=== PATIENT | female | born 1995 | race Two or more races ===

== ENCOUNTER 2017-01-27 09:51 | Emergency (ER) | payer OTHER ==
[2017-01-27 10:01] VITALS: PULSE 72; TEMP 98.4
[2017-01-27 10:18] LABS: COLOR YELLOW; LEUKOCYTE ESTERASE,URINE NEGATIVE (NEGATIVE); NITRITE,URINE NEGATIVE (NEGATIVE)
--- NOTE | 2017-01-27 11:01 | EDPHY ---
HPI/HX/ROS/PE/MDM Narrative: CHIEF COMPLAINT: Pelvic pain HPI: This patient is a 21 year old female complaining of lower abdominal pain onset this morning, now resolved. She had sharp, cramping pain in the area of her uterus for about two hours. This resolved here in the emergency department. She denies vaginal discharge, burning, or lesions. No hematuria or dysuria. Her last menstrual period was 20 days ago. She is now completely asymptomatic. No recent illness or trauma. She has no further concerns. REVIEW OF SYSTEMS: Aside from elements discussed in the HPI, a comprehensive 10-point review of systems was reviewed and is negative. PMH: Denies. SOCIAL HISTORY: Lives in [place]. Student at [employer]. Friend at bedside. PHYSICAL EXAM: General:Patient is alert, in no acute distress. ENT:Eyes are normal to inspection. ENT inspection normal. Neck: Normal inspection. Full range of motion. Respiratory:No respiratory distress. Breath sounds normal bilaterally. Cardiovascular: Regular rate and rhythm. Strong peripheral pulses. Normal cap refill. Abdomen:The abdomen is nontender to palpation. There are no peritoneal signs. There are normal bowel sounds. Back: Normal to inspection. No tenderness to palpation. Skin: Normal color. No rash. Warm and dry. Extremities: Left wrist in splint. Otherwise normal appearance. Full range of motion. Neuro: Oriented x3. Normal motor function. Normal sensory function. ED Course: 21 y/o female presents following two hour history of pelvic pain, now resolved. Benign abdomen on exam. Plan for labs including CBC, chemistries, BHCG. Plan for pelvic ultrasound to evaluate for acute processes. Pelvic ultrasound negative for acute processes. Laboratory studies unremarkable. BHCG negative, UA negative for UTI. 12:31 The patient continues to feel asymptomatic. She is comfortable with discharge home. Follow up and return precautions discussed. She is comfortable with this plan. - Data Points Imaging Results: Imaging Impressions Pelvic/Renal Ultrasound 01/27/17 10:58 Impression: 1. Normal-appearing uterus. 2. Normal ovaries. 3. Small amount of free fluid in the cul-de-sac. This could be physiologic. Laboratory Results: Laboratory Results 01/27/17 11:15 01/27/17 11:15 01/27/17 01/27/17 01/27/17 11:15 11:15 11:15 WBC 4.37 10^3/uL 10^3/uL (3.80-9.50) RBC 4.32 10^6/uL 10^6/uL (4.18-5.33) Hgb 13.8 g/dL g/dL (12.6-16.3) Hct 40.6 % % (38.0-47.0) MCV 94.0 fL fL (81.5-99.8) MCH 31.9 pg pg (27.9-34.1) MCHC 34.0 g/dL g/dL (32.4-36.7) RDW 12.5 % % (11.5-15.2) Plt Count 230 10^3/uL 10^3/uL (150-400) MPV 11.5 fL fL (8.7-11.7) Neut % (Auto) 54.7 % % (39.3-74.2) Lymph % (Auto) 36.4 % % (15.0-45.0) [place] % (Auto) 7.8 % % (4.5-13.0) Eos % (Auto) 0.2 % L % (0.6-7.6) Baso % (Auto) 0.7 % % (0.3-1.7) Nucleat RBC Rel Count 0.0 % % (0.0-0.2) Absolute Neuts (auto) 2.39 10^3/uL 10^3/uL (1.70-6.50) Absolute Lymphs (auto) 1.59 10^3/uL 10^3/uL (1.00-3.00) Absolute Monos (auto) 0.34 10^3/uL 10^3/uL (0.30-0.80) Absolute Eos (auto) 0.01 10^3/uL L 10^3/uL (0.03-0.40) Absolute Basos (auto) 0.03 10^3/uL 10^3/uL (0.02-0.10) Absolute Nucleated RBC 0.00 10^3/uL 10^3/uL (0-0.01) Immature Gran % 0.2 % % (0.0-1.1) Immature Gran # 0.01 10^3/uL 10^3/uL (0.00-0.10) Sodium 142 mEq/L mEq/L (134-144) Potassium 4.0 mEq/L mEq/L (3.5-5.2) Chloride 107 mEq/L mEq/L (97-110) Carbon Dioxide 23 mEq/l mEq/l (22-31) Anion Gap 12 mEq/L mEq/L (8-16) BUN 11 mg/dL mg/dL (7-23) Creatinine 0.8 mg/dL mg/dL (0.6-1.0) Estimated GFR > 60 Glucose 73 mg/dL mg/dL (70-100) Calcium 9.5 mg/dL mg/dL (8.5-10.4) Beta HCG, Qual NEGATIVE Urine Color Urine Appearance Urine pH Ur Specific [place] Urine Protein Urine Ketones Urine Blood Urine Nitrate Urine Bilirubin Urine Urobilinogen Ur Leukocyte Esterase Urine Glucose 01/27/17 10:05 WBC RBC Hgb Hct MCV MCH MCHC RDW Plt Count MPV Neut % (Auto) Lymph % (Auto) [place] % (Auto) Eos % (Auto) Baso % (Auto) Nucleat RBC Rel Count Absolute Neuts (auto) Absolute Lymphs (auto) Absolute Monos (auto) Absolute Eos (auto) Absolute Basos (auto) Absolute Nucleated RBC Immature Gran % Immature Gran # Sodium Potassium Chloride Carbon Dioxide Anion Gap BUN Creatinine Estimated GFR Glucose Calcium Beta HCG, Qual Urine Color YELLOW Urine Appearance CLEAR Urine pH 6.0 (5.0-7.5) Ur Specific [place] 1.012 (1.002-1.030) Urine Protein NEGATIVE (NEGATIVE) Urine Ketones NEGATIVE (NEGATIVE) Urine Blood NEGATIVE (NEGATIVE) Urine Nitrate NEGATIVE (NEGATIVE) Urine Bilirubin NEGATIVE (NEGATIVE) Urine Urobilinogen NEGATIVE EU EU (0.2-1.0) Ur Leukocyte Esterase NEGATIVE (NEGATIVE) Urine Glucose NEGATIVE (NEGATIVE) General Time Seen by Provider: 01/27/17 10:53 Initial Vital Signs: Initial Vital Signs Temperature (C) 36.9 C 01/27/17 09:59 Heart Rate 72 01/27/17 09:59 Respiratory Rate 16 01/27/17 09:59 Blood Pressure 96/51 L 01/27/17 09:59 O2 Sat (%) 98 01/27/17 09:59 O2 Delivery Mode Room Air Allergies/Adverse Reactions: No Known Allergies Allergy (Unverified 01/27/17 09:58) Home Medications: Medication Instructions Recorded Ibuprofen 01/27/17 Departure - Departure Disposition: Home, Routine, Self-Care Clinical Impression: Pelvic pain in female Condition: Good Instructions: Pelvic Pain in Women (ED) Additional Instructions: 1. Follow up with your primary care provider for further evaluation. 2. Return to the emergency department for recurrent severe pain, abnormal bleeding or discharge, fever, vomiting, diarrhea, blood in your urine or pain with urination, or other worsening of condition. Referrals: NONE *PRIMARY CARE P,. [Primary Care Provider] - As per Instructions Leigh Ann Zhu MD [place] [place] - As per Instructions Report Scribed for: Biju Rincon Report Scribed by: Juanita Azul Date of Report: 01/27/17 Time of Report: 11:01 Physician Review and Approval Statement: Portions of this note were transcribed by an ED scribe. I personally performed the history, physical exam, and medical decision making; and confirm the accuracy of the information in the transcribed note.
[2017-01-27 11:26] LABS: % IMMATURE GRANULYOCYTES 0.2 % (0.0-1.1); ABSOLUTE IMMATURE GRANULOCYTES 0.01 10^3/uL (0.00-0.10); ADD DIFF? NO; ADD MORPH? NO; ADD SCAN? NO; ATYPICAL LYMPHOCYTE FLAG 10 (0-99); FRAGMENT RBC FLAG 0 (0-99); HEMATOCRIT 40.6 % (38.0-47.0); HEMOGLOBIN 13.8 g/dL (12.6-16.3); LEFT SHIFT FLG 0 (0-99); LIPEMIA HEMOLYSIS FLAG 90 (0-99); MEAN CELL HEMOGLOBIN 31.9 pg (27.9-34.1); MEAN PLATELET VOLUME 11.5 fL (8.7-11.7); PLATELET CLUMPS FLAG 0 (0-99); PLATELET COUNT 230 10^3/uL (150-400); RED BLOOD CELL COUNT 4.32 10^6/uL (4.18-5.33); RED CELL DISTRIBUTION WIDTH 12.5 % (11.5-15.2)
[2017-01-27 11:43] LABS: ANION GAP 12 mEq/L (8-16); CALCIUM 9.5 mg/dL (8.5-10.4); CARBON DIOXIDE 23 mEq/l (22-31); CHLORIDE 107 mEq/L (97-110); CREATININE 0.8 mg/dL (0.6-1.0); GLOMERULAR FILTRATION RATE > 60; GLUCOSE 73 mg/dL (70-100); SODIUM 142 mEq/L (134-144)
[2017-01-27 12:55] VITALS: BP 100/59; RESP 18; O2SAT 97
== END 2017-01-27 12:55 | disposition home or self-care (01) ==
DX: R10.2 Pelvic and perineal pain (principal)

== ENCOUNTER → 2017-06-10 | Outpatient (CLI) | payer OTHER | LOC: FIMAGING 13:57 | PROVIDERS: ATTEND Orthopaedic Surgery Hand Surgery | DX: S52.201K Unspecified fracture of shaft of right ulna, subsequent encounter for closed fracture with nonunion (principal) ==

== ENCOUNTER 2018-06-11 11:08 | Emergency (ER) | payer OTHER ==
--- NOTE | 2018-06-11 11:27 | EDPHY ---
H & P Stated Complaint: sz Time Seen by Provider: 06/11/18 11:14 HPI/ROS: CHIEF COMPLAINT: First-time seizure HISTORY OF PRESENT ILLNESS: The patient presents the ED after first-time seizure. She apparently had been having anxiety and hyperventilation today secondary to concerns about school. Paramedics were initially summoned to the house spent approximately 25 min with the patient she seemed to improve. At the time of their planned departure the patient had worsening symptoms was observed to collapse to the ground and had a witnessed tonic-clonic seizure. The patient did bite her tongue. She sustained no traumatic injury. The patient has no prior history of seizures. She has no history of significant alcohol use. She takes no prescription medications. The patient is currently postictal and unable to provide additional history. History is obtained from her boyfriend. REVIEW OF SYSTEMS: A comprehensive 10 point review of systems is unobtainable secondary to her postictal state Source: Patient, Family - Personal History LMP (Females 10-55): Unknown Current Tetanus/Diphtheria Vaccine: Unsure Current Tetanus Diphtheria and Acellular Pertussis (TDAP): Unsure - Medical/Surgical History Hx Asthma: No Hx Chronic Respiratory Disease: No Hx Diabetes: No Hx Cardiac Disease: No Hx Renal Disease: No Hx Cirrhosis: No Hx Alcoholism: No Hx HIV/AIDS: No Hx Splenectomy or Spleen Trauma: No Other PMH: PMH: fx left wrist, currently casted. - Social History Smoking Status: Former smoker - Physical Exam Exam: General Appearance: Somnolent, arousable, no acute distress Head: Atraumatic Eyes: Pupils equal, round, reactive ENT, Mouth: Small tongue contusion noted Neck: Nontender, trachea midline Respiratory: No chest wall tender, subcutaneous air, lungs clear bilaterally Cardiovascular: Regular rate and rhythm Abdomen: Abdomen is soft and nontender, pelvis stable Skin: Superficial skin abrasions noted Back: No midline T/L/S pain Extremities: Nontender, full range of motion Neurological: Oriented x1, grossly normal motor exam Constitutional: Initial Vital Signs Temperature (C) 37 C 06/11/18 11:18 Heart Rate 104 H 06/11/18 11:18 Respiratory Rate 16 06/11/18 11:18 Blood Pressure 97/64 L 06/11/18 11:18 O2 Sat (%) 94 06/11/18 11:18 O2 Delivery Mode Room Air Allergies/Adverse Reactions: No Known Allergies Allergy (Verified 06/11/18 11:18) Home Medications: Medication Instructions Recorded Ibuprofen 01/27/17 Medical Decision Making - Diagnostics EKG Interpretation: EKG: Complete interpretation has been separately recorded in the [facility] archive. Summary impression: Sinus tachycardia, rate 100, nonspecific ST T wave changes noted Imaging Results: Imaging Impressions Head CT 06/11/18 11:27 Impression: Negative noncontrast CT of the head. Negative for intracranial hemorrhage or seizure focus. Results called and discussed with Timothy Gr M.D. on 06/11/2018 at 12:09. ED Course/Re-evaluation: The patient presents the emergency department after a witnessed first-time seizure. This appears to be unprovoked although the patient was having hyperventilation prior to the event. The patient seemed quite postictal upon arrival. She was taken for noncontrast head CT scan which demonstrated no evidence of an acute intracranial abnormality. Aside from the small tongue contusion she had no traumatic injury. Review of the patient's metabolic panel does demonstrate a decreased CO2 consistent with her seizure activity. The remainder of her electrolytes were unremarkable. The patient had serial examinations in the emergency department and had returned to her normal neurologic baseline. She has been instructed about the typical aftercare for first-time seizure including driving restrictions. The patient has been referred to our on-call neurologist. She is discharged home with customary seizure aftercare instructions and return precautions. Differential Diagnosis: Differential diagnosis considered includes seizure, syncope, intracranial hemorrhage, meningitis - Data Points Laboratory Results: Laboratory Results 06/11/18 11:15 06/11/18 11:15 06/11/18 06/11/18 06/11/18 11:15 11:15 11:15 WBC 9.30 10^3/uL 10^3/uL (3.80-9.50) RBC 4.77 10^6/uL 10^6/uL (4.18-5.33) Hgb 15.2 g/dL g/dL (12.6-16.3) Hct 50.0 % H % (38.0-47.0) MCV 104.8 fL H fL (81.5-99.8) MCH 31.9 pg pg (27.9-34.1) MCHC 30.4 g/dL L g/dL (32.4-36.7) RDW 11.4 % L % (11.5-15.2) Plt Count 239 10^3/uL 10^3/uL (150-400) MPV 12.6 fL H fL (8.7-11.7) Neut % (Auto) 45.4 % % (39.3-74.2) Lymph % (Auto) 42.2 % % (15.0-45.0) [place] % (Auto) 10.8 % % (4.5-13.0) Eos % (Auto) 0.8 % % (0.6-7.6) Baso % (Auto) 0.6 % % (0.3-1.7) Nucleat RBC Rel Count 0.0 % % (0.0-0.2) Absolute Neuts (auto) 4.23 10^3/uL 10^3/uL (1.70-6.50) Absolute Lymphs (auto) 3.92 10^3/uL H 10^3/uL (1.00-3.00) Absolute Monos (auto) 1.00 10^3/uL H 10^3/uL (0.30-0.80) Absolute Eos (auto) 0.07 10^3/uL 10^3/uL (0.03-0.40) Absolute Basos (auto) 0.06 10^3/uL 10^3/uL (0.02-0.10) Absolute Nucleated RBC 0.00 10^3/uL 10^3/uL (0-0.01) Immature Gran % 0.2 % % (0.0-1.1) Immature Gran # 0.02 10^3/uL 10^3/uL (0.00-0.10) Sodium 148 mEq/L H mEq/L (135-145) Potassium 4.2 mEq/L mEq/L (3.5-5.2) Chloride 109 mEq/L mEq/L (97-110) Carbon Dioxide 13 mEq/l L mEq/l (22-31) Anion Gap 26 mEq/L H mEq/L (6-14) BUN 11 mg/dL mg/dL (7-23) Creatinine 1.0 mg/dL mg/dL (0.6-1.0) Estimated GFR > 60 Glucose 129 mg/dL H mg/dL (70-100) Calcium 10.1 mg/dL mg/dL (8.5-10.4) Beta HCG, Qual NEGATIVE Departure - Departure Disposition: Home, Routine, Self-Care Clinical Impression: Seizure disorder Condition: Good Instructions: New-Onset Seizure in Adults (ED) Additional Instructions: 1. No driving, dangerous activities such as riding a ski lift, swimming in a pool or other behavior that could put you or someone else at risk in the event of a recurrent seizure. You will need to be cleared by a neurologist to resume these activities. 2. Please return to the ED for recurrent seizure, headache, numbness, weakness, altered mental status or other concerns. 3. Please follow up with neurologist you have been referred to this week to schedule a follow-up appointment. Referrals: Sami Patel MD [Medical Doctor] - As per Instructions
[2018-06-11 11:37] LABS: PLATELET COUNT 239 10^3/uL (150-400)
[2018-06-11 12:39] VITALS: BP 117/96
[2018-06-11] MEDS ORDERED: NS 1,000 ML IV ONE (12:42)
--- NOTE | 2018-06-11 13:00 | CPEKG ---
Test Reason : OPEN Blood Pressure : / mmHG Vent. Rate : 101 BPM Atrial Rate : 099 BPM P-R Int : 148 ms QRS Dur : 095 ms QT Int : 359 ms P-R-T Axes : 077 038 053 degrees QTc Int : 466 ms Sinus tachycardia Ventricular premature complex Confirmed by Timothy Gr ([id number]) on 06/11/2018 1:00:03 PM Referred By: Timohty Gr Confirmed By:Timothy Gr
== END 2018-06-11 12:50 | disposition home or self-care (01) ==
LOC: EDUNIT#
DX: R56.9 Unspecified convulsions (principal); F41.9 Anxiety disorder, unspecified; E86.9 Volume depletion, unspecified

== ENCOUNTER → 2018-07-21 | Outpatient (CLI) | payer OTHER | LOC: FIMAGING 19:54 ==